=== PATIENT | female | born 2000 | race Caucasian/White ===

== ENCOUNTER 2022-06-25 10:34 | Observation (INO) ==
[2022-06-25 10:39] VITALS: BMI 25.8
--- NOTE | 2022-06-25 10:47 | ED.ABDFE ---
HPI Time Seen Time Seen by Provider: 06/25/22 10:44 PCP Primary Care Physician: FLORESITA CURRAN HPI Comment HPI Comment: PATIENT IS 22YR OLD FEMALE IN ER WITH RLQ ABDOMINAL PAIN SINCE THIS AM. Complaint Doctors Chief Complaint Comments: RLQ ABDOMINAL PAIN SINCE THIS AM. Chief Complaint:: PT C/O OF RLQ PAIN THAT STARTED THIS MORNING ALONG WITH NAUSEA,VOMITING,DIARRHEA. Self Treatment fo Chief Complaint: ZOFRAN,PEPTO Source History Provided: Patient Mode of arrival Mode of Arrival: Ambulatory Timing Onset of Chief Complaint: 06/25/22 PMH PMH Past Medical History: No Past Surgical History: Yes Surgical History: Cholecystectomy Family History History of Family Medical Conditions: No Social History Does patient currently use any type of tobacco product: No Have you used tobacco products in the last 12 months: No Type of Tobacco Use: None Does any household member use tobacco: No Alcohol Use: None Do you use any recreational Drugs:: No Lives With: Family Lives Where: Home Infectious screening In the last 2 months have you had wt loss of >10#?: NO Have you had fever, night sweats or hemotysis?: No Have you traveled outside the country in the last 6 months?: No Isolation: Standard PE Vital Signs Vitals: Temperature 97.4 F Pulse Rate 115 Respiratory Rate 20 Blood Pressure 107/73 O2 Sat by Pulse Oximetry 99 ROR Labs Reviewed Result Diagrams: 06/26/22 05:17 06/26/22 05:17 Laboratory: WBC 8.2 X10^3/uL (3.6-10.0) 06/25/22 10:50 RBC 4.47 X10^6/uL (3.5-5.4) 06/25/22 10:50 Hgb 13.1 g/dL (12.0-16.0) 06/25/22 10:50 Hct 37.4 % (36.0-47.0) 06/25/22 10:50 MCV 83.6 fL (80.0-100.0) 06/25/22 10:50 MCH 29.4 pg (27.0-34.0) 06/25/22 10:50 MCHC 35.1 g/dL (33.0-35.0) H 06/25/22 10:50 RDW 13.2 % (11.6-16.5) 06/25/22 10:50 Plt Count 288 X10^3/uL (150.0-450.0) 06/25/22 10:50 MPV 8.4 fL (7.4-11.0) 06/25/22 10:50 Neut % (Auto) 70.0 % (42.0-75.0) 06/25/22 10:50 Lymph % (Auto) 22.3 % (21.0-51.0) 06/25/22 10:50 [place]ila % (Auto) 5.2 % (0.0-13.0) 06/25/22 10:50 Eos % (Auto) 1.4 % (0.9-2.9) 06/25/22 10:50 Baso % (Auto) 1.1 % (0.2-1.0) H 06/25/22 10:50 Neut # (Auto) 5.7 x10^3/uL (2.2-4.8) H 06/25/22 10:50 Lymph # (Auto) 1.8 X10^3/uL (1.3-2.9) 06/25/22 10:50 [place]ila # (Auto) 0.4 x10^3/uL (0.3-0.8) 06/25/22 10:50 Eos # (Auto) 0.1 x10^3/uL (0.0-0.2) 06/25/22 10:50 Baso # (Auto) 0.1 X10^3/uL (0.0-0.1) 06/25/22 10:50 Absolute Nucleated RBC 0.0 /100WBC 06/25/22 10:50 Sodium 138 mmol/L (136-145) 06/25/22 10:50 Corrected Sodium TNP 06/25/22 10:50 Potassium 3.6 mmol/L (3.5-5.1) 06/25/22 10:50 Chloride 102 mmol/L (98-107) 06/25/22 10:50 Carbon Dioxide 26.3 mmol/L (21-32) 06/25/22 10:50 BUN 6 mg/dL (7-18) L 06/25/22 10:50 Creatinine 0.78 mg/dL (0.55-1.02) 06/25/22 10:50 Est GFR (MDRD) Af Amer > 60 (>60) 06/25/22 10:50 Est GFR (MDRD) Non-Af > 60 (>60) 06/25/22 10:50 Glucose 90 mg/dL (65-99) 06/25/22 10:50 Calcium 9.2 mg/dL (8.5-10.1) 06/25/22 10:50 Corrected Calcium TNP 06/25/22 10:50 Total Bilirubin 0.40 mg/dL (0.2-1.0) 06/25/22 10:50 AST 13 Units/L (15-37) L 06/25/22 10:50 ALT 15 Units/L (12-78) 06/25/22 10:50 Alkaline Phosphatase 54 Units/L (46-116) 06/25/22 10:50 Total Protein 7.7 g/dL (6.4-8.2) 06/25/22 10:50 Albumin 4.3 g/dL (3.4-5.0) 06/25/22 10:50 Globulin 3.4 g/dL (2.5-4.5) 06/25/22 10:50 Albumin/Globulin Ratio 1.3 Ratio (1.1-2.1) 06/25/22 10:50 Amylase 26 Units/L (25-115) 06/25/22 10:50 Lipase 77 Units/L (73-393) 06/25/22 10:50 HCG, Qual Negative <10 mIU/mL 06/25/22 10:50 Specimen Type Clean catch urine 06/25/22 10:52 Urine Color Yellow (YELLOW) 06/25/22 10:52 Urine Appearance Slightly hazy (CLEAR) 06/25/22 10:52 Urine pH 6.0 (5.0 - 8.0) 06/25/22 10:52 Ur Specific [place] 1.015 (1.000-1.030) 06/25/22 10:52 Urine Protein 1+ (NEGATIVE) 06/25/22 10:52 Urine Glucose (UA) Negative (NEGATIVE) 06/25/22 10:52 Urine Ketones Negative (NEGATIVE) 06/25/22 10:52 Urine Blood Negative (NEGATIVE) 06/25/22 10:52 Urine Nitrite Negative (NEGATIVE) 06/25/22 10:52 Urine Bilirubin Negative (NEGATIVE) 06/25/22 10:52 Urine Urobilinogen Normal (NORMAL) 06/25/22 10:52 Ur Leukocyte Esterase 1+ (NEGATIVE) 06/25/22 10:52 Urine RBC 0-2 /HPF (0-3) 06/25/22 10:52 Urine WBC 3-5 /HPF (0-5) 06/25/22 10:52 Ur Squamous Epith Cells Few /HPF (NEGATIVE) 06/25/22 10:52 Urine Bacteria Trace /HPF (NEGATIVE) 06/25/22 10:52 Ur Culture Indicated? No/not indicated 06/25/22 10:52 Opioid Opioid Risk Tool Total: 0 Total Score Risk Category: Low Risk Copyright: Christoph PENNY predicting aberrant behaviors Discharge Plan Diagnosis Discharge Problem: Abdominal pain Discharge Plan Patient Disposition: 09 ADMITTED INPATIENT Condition: Stable Orders to Discharge Patient Discharge Orders: Discharge (Routine); Ordered 06/26/22 Ordered By: RODRICK CHAU
[2022-06-25 11:03] LABS: BASOPHILS # (AUTO) 0.1 X10^3/uL (0.0-0.1); BASOPHILS % (AUTO) 1.1 % (0.2-1.0); EOSINOPHILS # (AUTO) 0.1 x10^3/uL (0.0-0.2); EOSINOPHILS % (AUTO) 1.4 % (0.9-2.9); HEMATOCRIT 37.4 % (36.0-47.0); HEMOGLOBIN 13.1 g/dL (12.0-16.0); LYMPHOCYTES # (AUTO) 1.8 X10^3/uL (1.3-2.9); LYMPHOCYTES % (AUTO) 22.3 % (21.0-51.0); MEAN CORPUSCULAR HEMOGLOBIN 29.4 pg (27.0-34.0); MEAN CORPUSCULAR HGB CONC 35.1 g/dL (33.0-35.0); MEAN CORPUSCULAR VOLUME 83.6 fL (80.0-100.0); MEAN PLATELET VOLUME 8.4 fL (7.4-11.0); MONOCYTES # (AUTO) 0.4 x10^3/uL (0.3-0.8); MONOCYTES % (AUTO) 5.2 % (0.0-13.0); NEUTROPHILS # (AUTO) 5.7 x10^3/uL (2.2-4.8); RED BLOOD COUNT 4.47 X10^6/uL (3.5-5.4); RED CELL DISTRIBUTION WIDTH 13.2 % (11.6-16.5); WHITE BLOOD COUNT 8.2 X10^3/uL (3.6-10.0)
[2022-06-25 11:05] LABS: BILIRUBIN,URINE NEGATIVE (NEGATIVE); BLOOD/HEMOGLOBIN,URINE NEGATIVE (NEGATIVE); GLUCOSE, URINE NEGATIVE (NEGATIVE); KETONES,URINE NEGATIVE (NEGATIVE); LEUKOCYTE ESTERASE ,URINE 1+ (NEGATIVE); NITRITES,URINE NEGATIVE (NEGATIVE); PROTEIN,URINE 1+ (NEGATIVE); UROBILINOGEN,URINE NORMAL (NORMAL)
[2022-06-25 11:13] LABS: ALANINE AMINOTRANSFERASE 15 Units/L (12-78); ALBUMIN 4.3 g/dL (3.4-5.0); ALKALINE PHOSPHATASE 54 Units/L (46-116); AMYLASE 26 Units/L (25-115); ASPARTATE AMINO TRANSFERASE 13 Units/L (15-37); BLOOD UREA NITROGEN 6 mg/dL (7-18); CALCIUM 9.2 mg/dL (8.5-10.1); CARBON DIOXIDE 26.3 mmol/L (21-32); CHLORIDE 102 mmol/L (98-107); CREATININE 0.78 mg/dL (0.55-1.02); LIPASE 77 Units/L (73-393); SODIUM 138 mmol/L (136-145); TOTAL PROTEIN 7.7 g/dL (6.4-8.2); eGFR NON BLACK RACES > 60 (>60)
[2022-06-25 11:18] LABS: APPEARANCE,URINE SLIGHTLY HAZY (CLEAR); BACTERIA,URINE TRACE /HPF (NEGATIVE); COLOR,URINE YELLOW (YELLOW); RBC,URINE 0-2 /HPF (0-3); SQUAMOUS EPITHELIAL CELL,UR FEW /HPF (NEGATIVE)
[2022-06-25 11:23] LABS: SERUM PREGNANCY TEST, QUAL NEGATIVE <10 mIU/mL
--- NOTE | 2022-06-25 12:45 | CT ---
HISTORYRLQ PAINSTUDYABDOMEN/PELVIS W/O CONCOMPARISONNoneTECHNIQUEMultiple axial images of the abdomen and pelvis were obtained from the lung bases to the pubic symphysis without the administration of IV contrast. Dose reduction techniques including Automated Exposure Control (AEC) and adjustment of mA and kV were utilized.FINDINGSThe visualized portions of the lung bases are unremarkable . The liver, spleen, pancreas, kidneys, and adrenal glands are unremarkable in their noncontrast CT appearance. The gallbladder is unremarkable in its CT appearance . No significant mesenteric lymphadenopathy or stranding can be observed. No free fluid or free air is seen within the abdomen. No bowel wall thickening or bowel dilatation is present. The colon is unremarkable. Specifically, there is no diverticulosis noted within the sigmoid colon. The appendix appears normal in size the urinary bladder is grossly unremarkable. The bony structures are grossly intact.IMPRESSIONUnremarkable CT of the abdomen and pelvis.Electronically signed by: ANSHUL UNGER (Jun 25, 2022 12:43:06)
--- NOTE | 2022-06-25 15:57 | US ---
PELVIC (NON OB)History: RLQ PAIN, PT HAD TO FILL URINARY BLADDERComparison:NoneTechnique: Multiple grayscale and color flow Doppler images of the pelvis were obtained transabdominally.Findings:The uterus measures 7.1 x 4.0 x 4.1 cm. The endometrial stripe measures 9 mm. The right ovary measures 3.0 x 1.5 x 1.7 cm. The left ovary measures 2.9 x 1.5 x 1.6 cm. Normal flow in the ovaries bilaterally. No adnexal masses. No free fluid.IMPRESSION:1.No source of right lower quadrant pain identified.Electronically signed by: TEA LEWIS (Jun 25, 2022 15:53:51)
[2022-06-25] MEDS ORDERED: MORPHINE SULFATE INJ 2 MG INJ IVP PRN (17:28)
[2022-06-25] MEDS ORDERED: ZOFRAN INJ 4 MG VIAL IVP PRN (17:28)
[2022-06-25] MEDS ORDERED: FLAGYL IV PREMIX 500 MG BAG 500 MG/100 ML BAG IV ONE (17:31)
[2022-06-25] MEDS: NS 1,000 ML IV 1,000 ML IV SCH (19:06)
[2022-06-26] MEDS: NS 1,000 ML IV 1,000 ML IV SCH (05:17)
[2022-06-26 05:40] LABS: BASOPHILS # (AUTO) 0.1 X10^3/uL (0.0-0.1); BASOPHILS % (AUTO) 1.1 % (0.2-1.0); EOSINOPHILS # (AUTO) 0.3 x10^3/uL (0.0-0.2); EOSINOPHILS % (AUTO) 5.5 % (0.9-2.9); LYMPHOCYTES # (AUTO) 2.5 X10^3/uL (1.3-2.9); LYMPHOCYTES % (AUTO) 42.4 % (21.0-51.0); MEAN CORPUSCULAR HEMOGLOBIN 29.5 pg (27.0-34.0); MEAN CORPUSCULAR HGB CONC 35.2 g/dL (33.0-35.0); MEAN CORPUSCULAR VOLUME 83.8 fL (80.0-100.0); MEAN PLATELET VOLUME 8.8 fL (7.4-11.0); MONOCYTES # (AUTO) 0.5 x10^3/uL (0.3-0.8); MONOCYTES % (AUTO) 7.6 % (0.0-13.0); NEUTROPHILS # (AUTO) 2.6 x10^3/uL (2.2-4.8); NEUTROPHILS % (AUTO) 43.4 % (42.0-75.0)
[2022-06-26 05:51] LABS: ALANINE AMINOTRANSFERASE 11 Units/L (12-78); ALKALINE PHOSPHATASE 40 Units/L (46-116); ASPARTATE AMINO TRANSFERASE 11 Units/L (15-37); BLOOD UREA NITROGEN 5 mg/dL (7-18); CALCIUM 7.9 mg/dL (8.5-10.1); CARBON DIOXIDE 26.3 mmol/L (21-32); CHLORIDE 106 mmol/L (98-107); COR CA(FOR HYPOALB) 8.7 mg/dL (8.5-10.1); CREATININE 0.67 mg/dL (0.55-1.02); SODIUM 139 mmol/L (136-145); TOTAL PROTEIN 5.6 g/dL (6.4-8.2); eGFR NON BLACK RACES > 60 (>60)
[2022-06-26 06:02] LABS: HEMOGLOBIN 10.9 g/dL (12.0-16.0)
[2022-06-26 09:12] VITALS: BP 93/55
== END 2022-06-26 10:59 | disposition home or self-care (01) ==
LOC: MED/SURG 10:34 → ER 10:34 → MED/SURG 16:48
PROVIDERS: ADMIT Surgery; ATTEND Surgery
DX: R10.31 Right lower quadrant pain; R11.2 Nausea with vomiting, unspecified; L04.9 Acute lymphadenitis, unspecified; K52.89 Other specified noninfective gastroenteritis and colitis; R19.7 Diarrhea, unspecified; R10.84 Generalized abdominal pain